=== PATIENT | female | born 1955 | race Caucasian/White ===

== ENCOUNTER 2017-07-05 04:20 | Emergency (ER) | payer OTHER ==
[2017-07-05] MEDS ORDERED: IBUPROFEN 600 MG TAB PO ONE ×2 (04:32→04:33)
--- NOTE | 2017-07-05 04:35 | EDPHY ---
H & P Stated Complaint: POS R 5TH TOE FX/DROPPED GLASS ON IT YEST Time Seen by Provider: 07/05/17 04:35 HPI/ROS: HPI CHIEF COMPLAINT: Right 5th toe injury. HISTORY OF PRESENT ILLNESS: This is a very pleasant 62-year-old female she presents emergency room for right 5th toe pain at 4:35 a.m. In the morning. Patient reports she was shopping at [employer] yesterday around noon she picked up a glass candle and put in the cart it fell out of the cart and landed on her right foot. Landed on her right 5th toe. Since then she has had ongoing pain. She is also able to bear weight on it due to the significant pain. Denies any other areas of trauma or any other areas of significant injury. Past Medical History: No significant medical history except for anxiety Past Surgical History: Denies significant recent surgical history Social History: Denies daily use of drugs alcohol tobacco. Family History: Noncontributory ROS REVIEW OF SYSTEMS: A comprehensive 10 point review of systems is otherwise negative aside from elements mentioned in the history of present illness. Exam Constitutional appears well nontoxic no acute distress triage nursing summary reviewed, vital signs reviewed, awake/alert. Eyes normal conjunctivae and sclera, EOMI, PERRLA. HENT normal inspection, atraumatic, moist mucus membranes, no epistaxis, neck supple/ no meningismus, no raccoon eyes. Respiratory clear to auscultation bilaterally, normal breath sounds, no respiratory distress, no wheezing. Cardiovascular rate normal, regular rhythm, no murmur, no edema, distal pulses normal. Gastrointestinal soft, non-tender, no rebound, no guarding, normal bowel sounds, no distension, no pulsatile mass. Genitourinary no CVA tenderness. Musculoskeletal right foot: The right foot is neurovascular intact good distal pulse, good cap refill, good sensation, no significant swelling no evidence of compartment syndrome. Of note over the 5th right digit there is some swelling and redness and pain with palpation. No significant ecchymosis. Good cap refill. no midline vertebral tenderness, full range of motion, no calf swelling , no tenderness of extremities, no meningismus, good pulses, neurovascularly intact. Skin pink, warm, & dry, no rash, skin atraumatic. Neurologic awake, alert and oriented x 3, AAOx3, moves all 4 extremities equally, motor intact, sensory intact, CN II-XII intact, normal cerebellar, normal vision, normal speech. Psychiatric normal mood/affect. Heme/Lymph/Immune no lymphadenopathy. Differential Diagnosis: Includes but is not limited to in a particular order right foot contusion, soft tissue injury, toe fracture, toe contusion, bony bruise. Medical Decision Making: Plan for this patient x-ray right foot, ice pack, anti -inflammatory pain medicine and re-evaluate. Re-evaluation: X-ray of the foot specifically right 5th toe. No evidence of acute fracture. Image interpreted by myself. Patient has been placed in a walking boot for comfort. Recommend elevation, ice , anti-inflammatory pain medicine. Return precautions discussed. Recommend following up with Podiatry. Source: Patient - Personal History Current Tetanus Diphtheria and Acellular Pertussis (TDAP): Yes Tetanus Vaccine Date: within 10 yrs - Medical/Surgical History Hx Asthma: No Hx Chronic Respiratory Disease: No Hx Diabetes: No Hx Cardiac Disease: No Hx Renal Disease: No Hx Cirrhosis: No Hx Alcoholism: No Hx HIV/AIDS: No Hx Splenectomy or Spleen Trauma: No Other PMH: Hypertension, Blepharoplasty, jessica, hyperlipidemia, - Social History Smoking Status: Heavy smoker Constitutional: Initial Vital Signs Temperature (C) 36.5 C 07/05/17 04:26 Heart Rate 91 07/05/17 04:26 Respiratory Rate 16 07/05/17 04:26 Blood Pressure 146/97 H 07/05/17 04:26 O2 Sat (%) 92 07/05/17 04:26 O2 Delivery Mode Room Air Allergies/Adverse Reactions: No Known Allergies Allergy (Verified 05/25/15 11:52) Home Medications: Medication Instructions Recorded [id number] 03/22/09 Medical Decision Making - Data Points Medications Given: Discontinued Medications Ibuprofen (Motrin) 600 mg PO EDNOW ONE Stop: 07/05/17 04:34 Last Admin: 07/05/17 04:34 Dose: 600 mg Departure - Departure Disposition: Home, Routine, Self-Care Clinical Impression: Foot contusion Qualifiers: Encounter type: initial encounter Laterality: right Qualified Code(s): S90.31XA - Contusion of right foot, initial encounter Condition: Good Instructions: Foot Contusion (ED) Additional Instructions: 1. I recommend he take anti-inflammatory pain medicine for your foot. Tylenol Motrin you can alternate these every 6-8 hours. 2. I would keep her foot elevated 3. Ice her toe. 4. Stay in walking boot for comfort and stabilization 5. Follow up with the foot doctor if continue have pain. Referrals: Mee Brown MD [Primary Care Provider] - As per Instructions Constantine Meeks DPM [Doctor of Podiatric Medicine] - As per Instructions
[2017-07-05 05:56] VITALS: BP 142/74
== END 2017-07-05 05:56 | disposition home or self-care (01) ==
DX: S90.31XA Contusion of right foot, initial encounter (principal); F17.200 Nicotine dependence, unspecified, uncomplicated; I10 Essential (primary) hypertension; W20.8XXA Other cause of strike by thrown, projected or falling object, initial encounter; Y99.8 Other external cause status; Y93.89 Activity, other specified
CPT/HCPCS: L4386

== ENCOUNTER → 2017-10-09 | Outpatient (CLI) | payer OTHER | LOC: FIMAGING 11:27 | PROVIDERS: ATTEND Family Medicine | DX: N95.0 Postmenopausal bleeding (principal) ==